=== PATIENT | male | born 2000 | race Caucasian/White ===

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

== ENCOUNTER 2018-06-03 11:50 | Emergency (ER) | payer BC ==
[2018-06-03 12:09] VITALS: BP 116/68
--- NOTE | 2018-06-03 13:17 | UC ---
Throat Pain/Nasal Devin HPI - HPI Summary HPI Summary: 18 y/o male presents to the urgent care accompany by mother c/o uri and sore throat symptoms for the past months. Pt reports symptoms are getting worse the past week w/ body aches, chills, low grade fever and productive cough. Now producing a green sputum and 3 episodes of vomiting since yesterday. He has been drinking fluids and eating well. today he has a SEVILLA, nausea and mild wheezing. Pain w/ swallowing is 8/10. Pt denies, neck pain or stiffness, rash, SOB,abdominal pain, diarrhea, SOB, or chest pain. Pt is UTD w/ all vaccines for his age as per mother. He took Robitussin PO and Tylenol PO lest night to alleviate symptoms. - History of Current Complaint Chief Complaint: UCRespiratory Stated Complaint: SORE THROAT Time Seen by Provider: 06/03/18 13:15 Hx Obtained From: Patient, Family/Night Time Babysitter - mother Onset/Duration: Gradual Onset, Lasting Weeks - 4 weeks, Still Present, Worse Since - 1 week Pain Intensity: 8 Pain Scale Used: 0-10 Numeric Cough: Sputum Appears - green Associated Signs & Symptoms: Positive: Wheezing - mild, Sinus Discomfort, Nasal Discharge, Fever, Vomiting, Other - headache. Negative: Dysphagia - Epiglottits Risk Factors Epiglottis Risk Factors: Negative - Allergies/Home Medications Allergies/Adverse Reactions: Allergies Allergy/AdvReac Type Severity Reaction Status Date / Time [facility]aclor [[facility]] Allergy anaph Verified 06/03/18 12:09 PMH/Surg Hx/FS Hx/Imm Hx Previously Healthy: Yes Respiratory History: Bronchitis - Surgical History Surgical History: Yes Surgery Procedure, Year, and Place: mole removal. birthmark removed - Family History Known Family History: Positive: Diabetes - Social History Occupation: Student Lives: With Family Alcohol Use: None Substance Use Type: Marijuana Substance Use Comment - Amount & Last Used: once a week Smoking Status (MU): Never Smoked Tobacco - Immunization History Vaccination Up to Date: Yes Review of Systems All Other Systems Reviewed And Are Negative: Yes Constitutional: Positive: Fever, Chills, Fatigue, Other - body aches Skin: Positive: Negative Eyes: Positive: Negative ENT: Positive: Sore Throat, Nasal Discharge, Sinus Congestion, Sinus Pain/ Tenderness Respiratory: Positive: Cough - producitve, Other - mild wheezing Cardiovascular: Positive: Negative Gastrointestinal: Positive: Vomiting, Nausea Genitourinary: Positive: Negative Motor: Positive: Negative Neurovascular: Positive: Negative Musculoskeletal: Positive: Myalgia Neurological: Positive: Headache Is Patient Immunocompromised?: No Physical Exam - Summary Physical Exam Summary: Vital Signs Reviewed: Yes General: well developed, well nourished male sitting in the examining table w/o any apparent distress Eyes: Positive: Conjunctiva Clear - PERRLA, EOMI, fundi grossly normal ENT: Positive: Normal ENT inspection, Hearing grossly normal, Pharynx normal, Nasal congestion - edematous and erythematous nasal mucosa, Nasal drainage - yellowish drainage, TMs normal. Negative: Tonsillar swelling, Tonsillar exudate Neck: Positive: Supple, Nontender, No Lymphadenopathy Respiratory: no orthopnea or dyspnea. Able to speak in full sentences, no retractions or accessory muscle use, no tripod position, stridor, or head bobbing. Positive breath sounds bilaterally. diffuse scattered wheezing and rhonchi on b/L lungs, no crackles or rales. Cardiovascular: Positive: RRR, No Murmur, Pulses Normal, Brisk Capillary Refill Abdomen Description: Positive: Nontender, No Organomegaly, Soft. Negative: CVA Tenderness (R), CVA Tenderness (L) Bowel Sounds: Positive: Present Musculoskeletal Exam: Normal Musculoskeletal: Positive: Strength Intact, ROM Intact, No Edema Neurological Exam: Normal Psychological Exam: Normal Skin Exam: Normal Triage Information Reviewed: Yes Vital Signs: Initial Vital Signs Temp 98 F 06/03/18 12:05 Pulse 100 06/03/18 12:05 Resp 20 06/03/18 12:05 BP 116/68 06/03/18 12:05 Pulse Ox 99 06/03/18 12:05 Throat Pain/Nasal Course/Dx - Course Course Of Treatment: 18 y/o male presents to the urgent care accompany by mother c/o uri and sore throat symptoms for the past months. Pt reports symptoms are getting worse the past week w/ body aches, chills, low grade fever and productive cough. Now producing a green sputum and 3 episodes of vomiting since yesterday. He has been drinking fluids and eating well. today he has a SEVILLA , nausea and mild wheezing. Pain w/ swallowing is 4/10. Pt denies, neck pain or stiffness, rash, SOB,abdominal pain, diarrhea, SOB, or chest pain. Pt is UTD w / all vaccines for his age as per mother. He took Robitussin PO and Tylenol PO last night to alleviate symptoms. Hx obtained. Pt with b/L lungs w/ scattered rhonchi and mild wheezing on examination. Chest X-ray ordered to r/o pneumonia. Impression: patchy left lower lobe pneumonia. O2SAt:99% Influenxa A&B ordered: negative. Pt given Zofran PO to alleviate nausea, Also give an albuterol nebulizer treatment and lungs improved,O2sat: 100% no wheezing and Pt felt better. Pt's symptoms disccused w/ Dr Maza and she recommended levaquin PO adn f/ u w/ PCP in 2-3 days to make sure symptoms are improving. All the findings and test results with the patient and mother. Pt's is and allergic to Ceclor. Pt given Levaquin PO 750mg PO at the clinic by nurse. Pt Rx Levaquin PO, albuterol Inhaler as directed below. Pt and mother advised if worsening symptoms to immediately go to the ER for further management. Also to f/u w/ his PCP in 2-3 days to make sure symptoms were improving. Plan of care was discussed with the mother and patient. Mother and PT understands and agreed w/ D /c instructions. All questions were answered at patient satisfaction. There were no further complaints or concerns. Pt left the clinic hemodynamically stable, A&OX3 and ambulating. - Differential Dx/Diagnosis Differential Diagnosis/HQI/PQRI: Influenza, Laryngitis, Mononucleosis, Pharyngitis, Sinusitis, Tonsillitis, URI, Other - bronchitis, pneumonia Provider Diagnoses: 1-Community aquired pneumonia. 2-fever Discharge - Sign-Out/Discharge Documenting (check all that apply): Patient Departure All imaging exams completed and their final reports reviewed: Yes - Discharge Plan Condition: Stable Disposition: HOME Prescriptions: Albuterol HFA INHALER* [Ventolin HFA Inhaler*] 1 - 2 puff INH Q6H PRN #1 mdi PRN Reason: Cough Levofloxacin TAB* [Levaquin TAB*] 750 mg PO DAILY #6 tab Patient Education Materials: Community Acquired Pneumonia (ED) Forms: *Work Release Referrals: [facility] [Outside] - 2 Days Additional Instructions: 1-Please take full course of antibiotic to avoid resistance. Starting tomorrow night 2-Take Delsym PO or Robitussin PO as directed and use the albuterol inhaler to alleviate cough. Increase fluid intake, rest and eat well. 3-Take Ibuprofen PO q6-8hrs prn after meals to alleviate pain and fever. 3- If symptoms do not improve or worsen or your develop SOB with fever and severe cough please go immediately to the ER further evaluation and treatment. 4-See your PCP in 2-3 days to check if your symptoms are improving - Billing Disposition and Condition Condition: STABLE Disposition: Home
[2018-06-03] MEDS ORDERED: Ondansetron ODT TAB* 4 MG PO ONE (13:28)
[2018-06-03] MEDS ORDERED: Albuterol 2.5 MG/3 ML NEB.SOL* (0.083%) INH ONE (13:51)
[2018-06-03] MEDS ORDERED: Famotidine TAB* 20 MG PO ONE (13:52)
[2018-06-03] MEDS ORDERED: Levofloxacin TAB* 250 MG PO ONE (14:26)
[2018-06-03] MEDS: Levofloxacin TAB* 500 MG PO ONE (14:31)
== END 2018-06-03 14:52 | disposition home or self-care (01) ==
LOC: UCEAST 11:50
DX: J18.9 Pneumonia, unspecified organism (principal); R50.9 Fever, unspecified; Z88.1 Allergy status to other antibiotic agents
CPT/HCPCS: 71046; 87651; 99213; A9270-GY; G0463